=== PATIENT | male | born 1975 | race Caucasian/White ===

== ENCOUNTER 2017-05-22 18:57 | Emergency (ER) | payer BC ==
[2017-05-22 19:01] VITALS: TEMP 97.9
[2017-05-22] MEDS ORDERED: METHOCARBAMOL 500 MG TAB PO ONE (20:24)
[2017-05-22] MEDS ORDERED: HYDROCOD/APAP 5/325 PREPACK#6 BTL TAKEHOME ONE (20:25)
[2017-05-22] MEDS ORDERED: LIDOCAINE 5% 1 EA PATCH TD SCH (20:30)
--- NOTE | 2017-05-22 20:38 | EDPHY ---
H & P Stated Complaint: back spasm Time Seen by Provider: 05/22/17 19:28 HPI/ROS: CHIEF COMPLAINT: Back Pain HISTORY OF PRESENT ILLNESS: 42-year-old male presents emergency department complaining of acute on chronic low back pain. Patient has a known herniated disc in his back. He has had epidural steroid injections in 2001 and again in 2008. He does physical therapy exercises and stretches daily. Patient reports increasing pain over the last week after a long flight to [place]. He reports pain in his right SI joint that radiates into his right hip and has shooting pains down to his right foot. He denies loss of control of his bowel or bladder , no saddle anesthesias, no leg weakness, no fevers. Patient has an appointment with the sports medicine doctor on June 02 though does not feel like he can wait this long for pain control. REVIEW OF SYSTEMS: A comprehensive 10 point review of systems is otherwise negative aside from elements mentioned in the history of present illness. - Personal History Current Tetanus/Diphtheria Vaccine: Unsure Current Tetanus Diphtheria and Acellular Pertussis (TDAP): Unsure - Medical/Surgical History Hx Asthma: No Hx Chronic Respiratory Disease: No Hx Diabetes: No Hx Cardiac Disease: No Hx Renal Disease: No Hx Cirrhosis: No Hx Alcoholism: No Hx HIV/AIDS: No Hx Splenectomy or Spleen Trauma: No Other PMH: SVT, back injections - Social History Smoking Status: Never smoked - Physical Exam Exam: Physical Exam Gen: Alert and Oriented, NAD HEENT: PERRL, moist mucous membranes NECK: no meningismus CV: regular rate and regular rhythm PULM: CTAB, no wheezes ABDOMEN: soft, non tender to palpation, BS present BACK: Right SI joint tenderness to palpation, no midline tenderness to palpation NEURO: Neurologically grossly intact, 2/4 deep tendon reflexes bilateral patellar, 2/4 right Achilles, absent left Achilles, 5/5 strength bilaterally EXTREMITIES: normal appearing SKIN: no rash or break in skin on exposed skin PSYCH: answers questions appropriately. Constitutional: Initial Vital Signs Temperature (C) 36.6 C 05/22/17 18:59 Heart Rate 91 05/22/17 18:59 Respiratory Rate 16 05/22/17 18:59 Blood Pressure 160/99 H 05/22/17 18:59 O2 Sat (%) 97 05/22/17 18:59 O2 Delivery Mode Room Air Allergies/Adverse Reactions: adhesive [Adhesive] Allergy (Verified 11/03/10 21:39) Home Medications: Medication Instructions Recorded NO HOME MEDICATIONS 11/03/10 Methocarbamol [Robaxin 750 mg (*)] 750 mg PO QID PRN #20 tab 05/22/17 Medical Decision Making Differential Diagnosis: The differential diagnosis for the patient's back pain included but was not limited to musculo-skeletal pain, epidural abscess, herniated disk, spinal fracture, cauda equina and intra-abdominal causes including urinary system. Departure - Departure Disposition: Home, Routine, Self-Care Clinical Impression: Right lumbar radiculitis Condition: Good Instructions: Lumbar Radiculopathy (ED), Lower Back Exercises (ED), Hydrocodone /Acetaminophen (By mouth) Additional Instructions: Take 600 mg of ibuprofen 3 times per day with food, takes methocarbamol every 8 hours as needed for muscle spasms. Ice or heat whichever feels better, gentle range of motion exercises, core strengthening exercises daily. Follow up with the neurosurgeon at 1st available appointment. Return to the emergency department for any loss of control of your bowel or bladder, numbness to your groin, fevers. Referrals: Nic Vines MD [Medical Doctor] - As per Instructions (Neurosurgeon on-call) Prescriptions: Methocarbamol [Robaxin 750 mg (*)] 750 mg PO QID PRN #20 tab PRN Reason: Spasms
[2017-05-22] MEDS ORDERED: PATCH REMOVAL 1 EA PATCH TD SCH (21:00)
[2017-05-22 21:17] VITALS: BP 140/85; PULSE 77; RESP 18; O2SAT 98
== END 2017-05-22 21:16 | disposition home or self-care (01) ==
DX: M54.16 Radiculopathy, lumbar region (principal)

== ENCOUNTER 2018-01-16 08:02 | Emergency (ER) | payer BC ==
[2018-01-16 08:16] VITALS: BP 137/110; PULSE 181; RESP 16; TEMP 97.7; O2SAT 96
--- NOTE | 2018-01-16 08:26 | CPEKG ---
Heart Rate: 108 RR Interval: 556 P-R Interval: 148 QRSD Interval: 90 QT Interval: 320 QTC Interval: 429 P Odell: 75 QRS Odell: 101 T Wave Odell: 44 EKG Severity - OTHERWISE NORMAL ECG - EKG Impression: SINUS TACHYCARDIA EKG Impression: RIGHT AXIS DEVIATION Electronically Signed By: Tucker Crandall 16-Jan-2018 09:06:29
--- NOTE | 2018-01-16 09:02 | EDPHY ---
H & P Stated Complaint: SVT Time Seen by Provider: 01/16/18 08:26 HPI/ROS: Chief Complaint: Rapid heart rate HPI: 42-year-old male with a history of intermittent SVT since he was a teenager. This morning patient felt his heart beating very rapidly. Usually labs is still last for about 30 min and attends vagal maneuvers at home. He is usually able to convert himself but this morning is persisted. Last episode was about a week ago. He states that he usually has a couple times a year but seems to have multiple episodes this year. Has seen Dr. Holley in the past and have discussed ablation but given the infrequency of his episodes they have elected to hold off for now. Patient believes that they happen more frequently in the wintertime. Has also noticed a happen when his is out of town. The typically happen in the morning while he is at work. He does admit that he drinks a couple cups of coffee a day, in the morning. He did have a couple cups of coffee this morning. No in his told him in the past that caffeine might be affecting this. Denies any recent illness. No fevers or chills. While being brought back from triage the patient converted to a sinus rhythm. Currently is without complaint. ROS: 10 point Review of Systems is negative except as noted in the HPI. PMH: SVT Social History: No smoking, rare alcohol, no recreational drug use Family History: non-contributory Physical Exam: Gen: Awake, Alert, No Distress HEENT: Nose: no rhinorrhea Eyes: PERRLA, EOMI Mouth: Moist mucosa Neck: Supple, no JVD Chest: nontender, lungs clear to auscultation Heart: S1, S2 normal, no murmur Abd: Soft, non-tender, no guarding Back: no CVA tenderness, no midline tenderness Ext: no edema, non-tender Skin: no rash Neuro: CN II-XII intact, Sensation grossly intact, Strength 5/5 in bilateral upper and lower extremities - Personal History Current Tetanus/Diphtheria Vaccine: Unsure Current Tetanus Diphtheria and Acellular Pertussis (TDAP): Unsure - Medical/Surgical History Hx Asthma: No Hx Chronic Respiratory Disease: No Hx Diabetes: No Hx Cardiac Disease: No Hx Renal Disease: No Hx Cirrhosis: No Hx Alcoholism: No Hx HIV/AIDS: No Hx Splenectomy or Spleen Trauma: No Other PMH: SVT, back injections - Social History Smoking Status: Never smoked Constitutional: Initial Vital Signs Temperature (C) 36.5 C 01/16/18 08:14 Heart Rate 181 H 01/16/18 08:14 Respiratory Rate 16 01/16/18 08:14 Blood Pressure 137/110 H 01/16/18 08:14 O2 Sat (%) 96 01/16/18 08:14 O2 Delivery Mode Room Air Allergies/Adverse Reactions: adhesive [Adhesive] Allergy (Verified 01/16/18 08:14) Home Medications: Medication Instructions Recorded NO HOME MEDICATIONS 11/03/10 Medical Decision Making - Diagnostics EKG Interpretation: ECG time 8:24 a.m., sinus tachycardia with a rate of 108, normal axis, normal intervals, no acute ST or T-wave changes. ED Course/Re-evaluation: 42-year-old male with intermittent SVT with an episode this morning. I think that caffeine is probably is greatest contributor. He also has having increasing stressors as these occur when his is out of 10 and he is taking care of the kids on his own. I think the combination of caffeine use an increasing stress or water setting off his SVT episodes. I have counseled him to switch to decaffeinated coffee. He will follow up with his surgical coder, Dr. Holley for further evaluation. Departure - Departure Disposition: Home, Routine, Self-Care Clinical Impression: SVT (supraventricular tachycardia) Condition: Good Instructions: Supraventricular Tachycardia (ED) Additional Instructions: Please switched to decaffeinated coffee and avoid caffeinated beverages including energy drinks. Make sure to get plenty of sleep. Follow up with Dr. Holley in 3-4 days for further evaluation. Return to the emergency department for rapid heart rate, palpitations, chest pain, shortness of breath, or any other concerns. Referrals: Melissa Burrows MD [Primary Care Provider] - As per Instructions Jenaro Holley MD [Medical Doctor] - As per Instructions
== END 2018-01-16 09:10 | disposition home or self-care (01) ==
DX: I47.1 Supraventricular tachycardia (principal)